=== PATIENT | female | born 1950 | race Caucasian/White ===

== ENCOUNTER → 2018-06-23 | Outpatient (CLI) | payer OTHER | END | disposition home or self-care (01) | LOC: HKI 08:55 | DX: M16.11 Unilateral primary osteoarthritis, right hip (principal); Z85.038 Personal history of other malignant neoplasm of large intestine; Z87.891 Personal history of nicotine dependence | CPT/HCPCS: 73502 ==

== ENCOUNTER 2018-08-02 06:06 | Day surgery (SDC) | payer OTHER ==
[2018-08-02] MEDS ORDERED: METHYLPREDNISOLONE ACET 80 MG/ML 1 ML (06:49)
[2018-08-02] MEDS ORDERED: IOHEXOL 300MG/ML 30 ML BTL (06:51)
[2018-08-02] MEDS ORDERED: PROPOFOL 200 MG INJ (07:00)
[2018-08-02 07:11] LABS: INR 0.93; PROTIME 12.6 Sec (11.9-14.9)
[2018-08-02 07:12] LABS: PARTIAL THROMBOPLASTIN TIME 29.1 Sec (23.0-35.0)
[2018-08-02] MEDS: LACTATED RINGER'S 1,000 ML IV* (07:14)
[2018-08-02] MEDS: LIDOCAINE 1% (MDV) 20 ML INJ INJ (07:45)
[2018-08-02] MEDS: METHYLPREDNISOLONE ACET 80 MG/ML 1 ML INJ (07:45)
[2018-08-02] MEDS: BUPIVACAINE 0.5% (MPF) 30 ML INJ INJ (07:45)
[2018-08-02] MEDS ORDERED: BUPIVACAINE 0.5% (SDV) 30 ML INJ (07:45)
[2018-08-02] MEDS ORDERED: LIDOCAINE 1% (MDV) 20 ML INJ (07:46)
[2018-08-02] MEDS ORDERED: ONDANSETRON 4 MG INJ IV ×2 (08:30→09:00)
[2018-08-02] MEDS ORDERED: HYDROCODONE/APAP (5/325) TAB PO (08:30)
[2018-08-02] MEDS ORDERED: FENTAnyl 50 MCG/ML VIAL IV ×3 (09:00)
[2018-08-02] MEDS ORDERED: OXYCODONE/ACETAMINOPHEN (5/325) TAB PO ×2 (09:00)
[2018-08-02] MEDS ORDERED: MEPERIDINE 25 MG INJ IV (09:00)
[2018-08-02] MEDS ORDERED: hydrALAzine 20 MG INJ IV (09:00)
[2018-08-02] MEDS ORDERED: ALBUTEROL 0.083% (NEB) 2.5 MG/3 ML AMP HHN (09:00)
[2018-08-02] MEDS ORDERED: KETOROLAC 30 MG INJ IV (09:00)
[2018-08-02] MEDS ORDERED: DIPHENHYDRAMINE 50 MG INJ IV (09:00)
[2018-08-02] MEDS ORDERED: EPHEDrine SULFATE 50 MG/5 ML SYG IV (09:00)
[2018-08-02] MEDS ORDERED: LABETALOL HCL 20MG INJ IV (09:00)
== END 2018-08-02 09:33 | disposition home or self-care (01) ==
LOC: SDS 06:06
DX: M16.11 Unilateral primary osteoarthritis, right hip (principal); J45.909 Unspecified asthma, uncomplicated; K21.9 Gastro-esophageal reflux disease without esophagitis; E66.9 Obesity, unspecified; C18.9 Malignant neoplasm of colon, unspecified
CPT/HCPCS: 20610; 73530; 85610; 85730